=== PATIENT | male | born 2000 | race Caucasian/White ===

== ENCOUNTER 2022-08-27 00:32 | Emergency (ER) | payer BC, OTHER ==
[2022-08-27 00:40] VITALS: TEMP 98.7
--- NOTE | 2022-08-27 01:08 | XR ---
EXAMINATION TYPE: XR forearm RT DATE OF EXAM: 08/27/2022 COMPARISON: NONE HISTORY: Pain TECHNIQUE: 2 views FINDINGS: There is nondisplaced transverse hairline fracture of the ulna between middle and distal th irds. The wrist joint and elbow joint appear intact. IMPRESSION: Acute fracture of the distal shaft of the ulna with no displacement.
[2022-08-27] MEDS ORDERED: ACETAMINOPHEN TAB 500 MG TAB PO STA (01:26)
[2022-08-27] MEDS ORDERED: IBUPROFEN 800 MG TAB PO STA (01:56)
[2022-08-27] MEDS ORDERED: HYDROcodone/APAP 5-325MG 1 EACH TAB PO STA (01:56)
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
[2022-08-27 02:58] VITALS: BP 136/72; PULSE 82; RESP 16
== END 2022-08-27 02:57 | disposition home or self-care (01) ==
LOC: EC 00:32
DX: S52.201A Unspecified fracture of shaft of right ulna, initial encounter for closed fracture (principal)

== ENCOUNTER 2022-09-28 16:23 | Emergency (ER) | payer OTHER ==
[2022-09-28 16:58] VITALS: BP 123/80; PULSE 94; RESP 18; TEMP 98.3
--- NOTE | 2022-09-28 18:01 | ED ---
Recheck HPI - General Chief Complaint: Recheck/Abnormal Lab/Rx Stated Complaint: Wants cast off Source: patient, RN notes reviewed Mode of arrival: ambulatory Limitations: no limitations - History of Present Illness Initial Comments: Patient is a 22-year-old male presenting to the emergency room requesting his cast off. He reports that he was supposed to contact his or thopedist office to have his cast removed but is presenting to the emergency department demanding his cast removed despite not being evaluated by orthopedist since application of his cast. No documentation of cast application is available in our system but states that it was applied the day after his last visit to the emergency room in which he was diagnosed with a fracture to the distal shaft of his right ulna on 08/27/2023. He has no significant past medical history. - Related Data Previous Rx's Medication Instructions Recorded HYDROcodone/APAP 5-325MG [[place] 1 tab PO Q6HR PRN 3 Days #12 tab 08/27/22 5-325] Allergies Allergy/AdvReac Type Severity Reaction Status Date / Time No Known Allergies Allergy Verified 09/28/22 16:58 Review of Systems ROS Statement: Those systems with pertinent positive or pertinent negative responses have been documented in the HPI. ROS Other: All systems not noted in ROS Statement are negative. Past Medical History Past Medical History: No Reported History History of Any Multi-Drug Resistant Organisms: None Reported Past Surgical History: No Surgical Hx Reported Past Psychological History: No Psychological Hx Reported Smoking Status: Never smoker Past Alcohol Use History: Occasional Past Drug Use History: Marijuana General Exam Limitations: no limitations General appearance: alert, in no apparent distress, other (Smells of marijuana) Head exam: Present: atraumatic, normocephalic, normal inspection Eye exam: Present: normal appearance, PERRL, EOMI. Absent: scleral icterus, conjunctival injection, periorbital swelling ENT exam: Present: normal exam, mucous membranes moist Neck exam: Present: normal inspection, full ROM Respiratory exam: Absent: respiratory distress, accessory muscle use Cardiovascular Exam: Present: regular rate GI/Abdominal exam: Absent: distended Right Forearm Wrist exam: Present: other (Cast intact) Vascular: Absent: vascular compromise Back exam: Present: normal inspection Neurological exam: Present: alert, oriented X3, CN II-XII intact Psychiatric exam: Present: normal affect, normal mood Skin exam: Present: abrasion (Right hand from scratching and pulling at cast near her thumb region dorsal aspect no surrounding induration or evidence of cellulitis) Course Vital Signs 09/28/22 16:55 Temperature 98.3 F Pulse Rate 94 Respiratory 18 Rate Blood Pressure 123/80 O2 Sat by Pulse 97 Oximetry Medical Decision Making - Medical Decision Making 22-year-old male with known distal ulna fracture on x-ray on 08/27/2022 diagnosed in the this emergency department. Discussed with patient at length that patient is to follow-up with the orthopedist for proper management and treatment of his fracture including cast removal. Will not remove cast this time. No indication for diagnostic imaging or laboratory studies. Will discharge home in stable condition with his cast on with follow-up with his orthopedist as previously recommended. Case discussed with Dr. Lewis. Disposition Clinical Impression: Fracture of distal end of right ulna Disposition: HOME SELF-CARE Condition: Stable Additional Instructions: Please contact your orthopedist for follow-up imaging and cast removal. Do not remove the cast yourself. Please return to the Emergency Department if symptoms worsen or any other concerns. Is patient prescribed a controlled substance at d/c from ED?: No Referrals: None,Stated [Primary Care Provider] - 1-2 days Time of Disposition: 18:00
== END 2022-09-28 18:30 | disposition home or self-care (01) ==
LOC: EC 16:23
DX: S52.601D Unspecified fracture of lower end of right ulna, subsequent encounter for closed fracture with routine healing (principal); X58.XXXD Exposure to other specified factors, subsequent encounter
CPT/HCPCS: 99282

== ENCOUNTER 2023-03-21 12:42 | Emergency (ER) | payer OTHER ==
[2023-03-21 12:54] VITALS: TEMP 97.9
--- NOTE | 2023-03-21 13:33 | ED ---
General Adult HPI - General Chief complaint: Skin/Abscess/Foreign Body Stated complaint: Right foot injury Time Seen by Provider: 03/21/23 12:58 Source: patient Mode of arrival: wheelchair Limitations: no limitations - History of Present Illness Initial comments: 22-year-old male with no significant past medical history presents to the emergency department with a chief complaint of right foot laceration. Patient reports he was getting out of bed when he stepped on a Shoaib jar that was on the ground. He reports a laceration to his right foot with bleeding. He denies any numbness, tingling, weakness to the extremity. He is unsure of his last tetanus vaccination. He did not take anything for her symptoms. He denies any anticoagulant use. - Related Data Previous Rx's Medication Instructions Recorded HYDROcodone/APAP 5-325MG [[place] 1 tab PO Q6HR PRN 3 Days #12 tab 08/27/22 5-325] Allergies Allergy/AdvReac Type Severity Reaction Status Date / Time No Known Allergies Allergy Verified 03/21/23 12:52 Review of Systems ROS Statement: Those systems with pertinent positive or pertinent negative responses have been documented in the HPI. ROS Other: All systems not noted in ROS Statement are negative. Past Medical History Past Medical History: No Reported History History of Any Multi-Drug Resistant Organisms: None Reported Past Surgical History: Orthopedic Surgery Past Psychological History: No Psychological Hx Reported Smoking Status: Never smoker Past Alcohol Use History: Occasional Past Drug Use History: Marijuana General Exam - General Exam Comments Initial Comments: General: Alert, in no acute distress Head: atraumatic normocephalic. Eyes PERRL, EOMI intact, mucous membranes moist Respiratory: Lungs clear to auscultation bilaterally Cardiovascular: Heart rate regular rate and rhythm Abdominal: Soft without guarding or rebound Extremities: Normal inspection with full range of motion and normal capillary refill, right foot with a 1 cm laceration in between fourth and fifth webspace active bleeding for range of motion no crepitus 2+ DP/PT pulses Neuroogic: alert and oriented 3, CN II-XII intact, able to ambulate with steady gait Skin: warm dry and intact with normal color Limitations: no limitations Course Vital Signs 03/21/23 03/21/23 12:52 14:14 Temperature 97.9 F 97.9 F Pulse Rate 94 87 Respiratory 18 16 Rate Blood Pressure 112/68 147/67 O2 Sat by Pulse 97 98 Oximetry - Reevaluation(s) Reevaluation #1: 03/21/23 13:30 Patient refusing tetanus vaccination and stitches at this time. Medical Decision Making - Medical Decision Making Was pt. sent in by a medical professional or institution ([facility], [facility], urgent care, hospital, or half-way...) When possible be specific @ -[No] Did you speak to anyone other than the patient for history (EMS, parent, family, police, friend...)? What history was obtained from this source @ -Patient's family and patient Did you review nursing and triage notes (agree or disagree)? Why? @ -[I reviewed and agree with nursing and triage notes] Were old charts reviewed (outside hosp., previous admission, EMS record, old EKG, old radiological studies, urgent care reports/EKG's, half-way records)? Report findings @ -[No old charts were reviewed] Differential Diagnosis (chest pain, altered mental status, abdominal pain women, abdominal pain men, vaginal bleeding, weakness, fever, dyspnea, syncope, headache, dizziness, GI bleed, back pain, seizure, CVA, palpatations, mental health, musculoskeletal)? @ -[not applicable] EKG interpreted by me (3pts min.). @ -[As above] X-rays interpreted by me (1pt min.). @ -Right foot x-ray negative for any evidence of foreign body or open fracture CT interpreted by me (1pt min.). @ -[None done] U/S interpreted by me (1pt. min.). @ -[None done] What testing was considered but not performed or refused? (CT, X-rays, U/S, labs)? Why? @ -[None] What meds were considered but not given or refused? Why? @ -[None] Did you discuss the management of the patient with other professionals (professionals i.e. [facility], [facility], lab, RT, psych nurse, social service technician, manager communication, teacher, combatant diver officer, ed case manager)? Give summary @ -[No] Was smoking cessation discussed for >3mins.? @ -[No] Was critical care preformed (if so, how long)? @ -[No] Were there social determinants of health that impacted care today? How? (Homelessness, low income, unemployed, alcoholism, drug addiction, transportation, low edu. Level, literacy, decrease access to med. care, usp, rehab)? @ -[No] Was there de-escalation of care discussed even if they declined (Discuss DNR or withdrawal of care, Hospice)? DNR status @ -[No] What co-morbidities impacted this encounter? (DM, HTN, Smoking, COPD, CAD, Canc er, CVA, ARF, Chemo, Hep., AIDS, mental health diagnosis, sleep apnea, morbid obesity)? @ -[None] Was patient admitted / discharged? Hospital course, mention meds given and route, prescriptions, significant lab abnormalities, going to OR and other pertinent info. @ - -Discharged. This is a 22-year-old male who presents to the [facility] department with foot pain. Patient had a thorough history and physical exam performed while in the ED. Physical exam reveals heart rate regular rate and rhythm, lungs clear to auscultation bilaterally abdomen is soft and non- tender.. Right foot with 1 cm laceration in between the fourth and fifth digit webspace with bleeding controlled no crepitus noted full range of motion 2+ DP/PT pulses. Patient had imaging performed on the ED which were essentially unremarkable. I discussed the results in detail with the patient verbalized understanding and all questions were addressed. Patient refused to be updated on tetanus vaccination and refused suture placement. Risks and benefits of refusal tetanus vaccination were discussed with the patient at length. He was encouraged to follow up with his PCP in 1-2 days. Return precautions were discussed at length. Patient discharged in stable condition. Case discussed with JUAN MIGUEL Sandoval who agrees with plan of care Undiagnosed new problem with uncertain prognosis? @ -[No] Drug Therapy requiring intensive monitoring for toxicity (Heparin, Nitro, Insulin, Cardizem)? @ -[No] Were any procedures done? @ -[No] Diagnosis/symptom? @ -Right Foot Laceration Acute, or Chronic, or Acute on Chronic? @ -Acute Uncomplicated (without systemic symptoms) or Complicated (systemic symptoms)? @ -uncomplicated Side effects of treatment? @ -[No] Exacerbation, Progression, or Severe Exacerbation? @ -[No] Poses a threat to life or bodily function? How? (Chest pain, [place], [place], pneumonia, PE, COPD, DKA, ARF, appy, cholecystitis, CVA, Diverticulitis, Homicidal, Suicidal, threat to staff... and all critical care pts) @ -low likelihood Disposition Clinical Impression: Laceration, Refused diphtheria-tetanus vaccine Disposition: HOME SELF-CARE Condition: Stable Additional Instructions: Keep the area clean and dry Wrap during the day daily can leave uncovered at night Please return to the nearest emergency department if symptoms worsen or persist Is patient prescribed a controlled substance at d/c from ED?: No Referrals: None,Stated [Primary Care Provider] - 1-2 days Time of Disposition: 13:33
--- NOTE | 2023-03-21 13:45 | XR ---
EXAMINATION TYPE: XR foot complete RT DATE OF EXAM: 03/21/2023 COMPARISON: None HISTORY: Stepped on glass TECHNIQUE: 3 view right foot FINDINGS: No acute fracture or dislocation is evident. Soft tissues appear normal. No radiopaque fore ign bodies are identified. Follow-up exams can be performed 7-10 days acute trauma for continued pain. IMPRESSION: 1. No radiopaque foreign bodies.
[2023-03-21 14:16] VITALS: BP 147/67; PULSE 87; RESP 16
== END 2023-03-21 14:16 | disposition home or self-care (01) ==
LOC: EC 12:42
DX: S91.311A Laceration without foreign body, right foot, initial encounter (principal); Z28.21 Immunization not carried out because of patient refusal; F12.90 Cannabis use, unspecified, uncomplicated; W25.XXXA Contact with sharp glass, initial encounter
CPT/HCPCS: 99283